=== PATIENT | female | born 1980 | race Caucasian/White ===

== ENCOUNTER 2020-01-03 13:49 | Outpatient (REF) | payer MEDICAID, SELFPAY ==
[2020-01-07 14:17] LABS: SARS-CoV-2 RNA Undetected (Undetected); SARS-CoV-2 Specimen Source Nasal
== END 2020-01-03 14:09 ==
LOC: NCHCN 13:49
PROVIDERS: Visit Provider Family Medicine
DX: Z20.828 Contact with and (suspected) exposure to other viral communicable diseases (principal)
CPT/HCPCS: U0003

== ENCOUNTER 2021-09-24 11:00 | Outpatient (REF) | payer MEDICAID, SELFPAY ==
[2021-09-25 11:02] LABS: COVID-19 RT-PCR UVMMC Result Negative (Negative)
== END 2021-09-24 11:01 | disposition home or self-care (01) ==
LOC: NCHCN 11:00
PROVIDERS: Visit Provider Registered Nurse
DX: Z20.822 Contact with and (suspected) exposure to COVID-19 (principal); J06.9 Acute upper respiratory infection, unspecified
CPT/HCPCS: U0003

== ENCOUNTER 2024-10-03 16:27 | Outpatient (REF) | payer MEDICAID, SELFPAY ==
[2024-10-03 21:41] LABS: HCT 44.9 % (36.0-46.0); HGB 14.7 g/dL (11.2-15.7); MCH 29.3 pg (27.0-33.0); MCHC 32.7 % (32.0-36.0); MCV 89 fL (80-95); MPV 10.4 fL (8.0-11.0); Platelet Count 269 10^3/uL (130-400); RBC 5.02 10^6/uL (3.93-5.22); RDW 13.2 % (11.7-14.6); RDW-SD 43.8 fL; WBC 7.67 10^3/uL (4.4-10.8)
[2024-10-03 21:55] LABS: ALT 26 U/L (14-59); AST 27 U/L (15-37); Albumin 3.8 g/dL (3.4-5.0); Alkaline Phosphatase 66 U/L (46-116); Anion Gap 8.2 mmol/L (3-11); BUN 10 mg/dL (7-18); Bilirubin, Total 0.5 mg/dL (0.2-1.0); CO2 25.8 mmol/L (21.0-32.0); Calcium 9.2 mg/dL (8.5-10.1); Calculated LDL 118 mg/dL (<100); Chloride 101 mmol/L (98-107); Cholesterol 177 mg/dL (<200); Estimated GFR 108.62 (mL/min/1.73m2); Glucose 79 mg/dL (74-106); HDL Cholesterol 47 mg/dL (>or=50); Potassium 3.7 mmol/L (3.5-5.1); Sodium 135 mmol/L (136-145); Total Protein 7.3 g/dL (6.4-8.2); Triglyceride 64 mg/dL (<150)
[2024-10-03 22:23] LABS: Hemoglobin A1C 5.6 % (<5.7)
== END 2024-10-03 16:28 | disposition home or self-care (01) ==
LOC: NCHCN 16:27
PROVIDERS: Visit Provider Family Medicine
DX: F10.90 Alcohol use, unspecified, uncomplicated (principal); D75.1 Secondary polycythemia; Z00.00 Encounter for general adult medical examination without abnormal findings; Z13.220 Encounter for screening for lipoid disorders; Z12.31 Encounter for screening mammogram for malignant neoplasm of breast
CPT/HCPCS: 80053; 80061; 85027; 83036

== ENCOUNTER 2024-11-22 09:38 | Day surgery (SDC) | payer MEDICAID, SELFPAY ==
--- NOTE | 2024-11-21 19:11 | PDOC.DSDIS_ITS ---
Date of service: 11/22/24 Discharge Plan Disposition Patient Disposition: Home Condition: Good Discharge Details Reason For Visit: EGD and colonoscopy Attending Provider: Vladimir Huff Primary Care Provider: Marycarmen Rivas Home Meds and New Rx's Prescriptions: Continued albuterol sulfate 2.5 mg /3 mL (0.083 %) solution for nebulization 2.5 mg inhalation Q4H PRN meloxicam 15 mg tablet 15 mg PO DAILY lidocaine 5 % adhesive patch,medicated 1 patch topical DAILY Rx Instructions: leave on most painful area for up to 12 hrs hydroxyzine HCl 25 mg tablet 25 mg PO TID PRN Arnuity Ellipta 100 mcg/actuation blister with device 1 inh inhalation DAILY Combivent Respimat 20-100 mcg/actuation mist 1 puff inhalation Q6H Discontinued bisacodyl [Dulcolax (bisacodyl)] 5 mg tablet,delayed release (DR/EC) 5 mg PO ONCE Qty: 4 0RF Rx Instructions: Take per colonoscopy instructions provided by ordering providers office polyethylene glycol 3350 17 gram/dose powder 17 g PO ONCE Qty: 238 0RF Rx Instructions: Take per colonoscopy instructions provided by ordering providers office Discharge Instructions Instructions: Colon polyps, Diverticulosis Additional Instructions: Kami, it was nice meeting you today, and hope you feel well after the procedure. Things went smoothly. Your prep was excellent, and I could see things fine. I did find, and removed some polyps today. All of these are quite small. None of them. I will worrisome. However, to be safe, I will send these off to the pathologist for them to review. Once I know the nature of the polyps, I will be in touch with recommendations for your next colonoscopy. Incidentally, you also have some subtle signs of diverticulosis. Diverticula are weak spots in the muscular layer of the colon wall. These can get infected and inflamed and cause quite a bit of discomfort. Hopefully, years never bother you. I will attach some basic information here about colon rectal polyps, as well as diverticu losis. If you need anything, or have any questions at all, please do not hesitate to call at any time. Otherwise we will let you know once the polyp report is available. 1. If tolerated, consume a soft, low fiber diet for 1-2 days. 2[address] Do not drive, drink alcohol, operate machinery, make critical decisions, or do activities that require coordination or balance for 24 hours. 3. Because air was put into your colon during the procedure, expelling air from your rectum (passing gas or farting) is normal. 4. You may not have a bowel movement for 1-3 days because of the colonoscopy prep. This is normal. 5. Go directly to the emergency room if you notice any of the following: Develop chills (warm to touch), or if you have a thermometer and your temperature is above 101 Difficulty breathing or difficultly swallowing Persistent vomiting Severe abdominal pain, other than gas cramps Severe chest pain Black, tarry stools Any bleeding ? exceeding one tablespoon 6. Call your physician if the site where your intravenous was started becomes red, swollen, painful, and warm to touch. 7. Your physician has reviewed your pre-procedure medications. Please continue to take those medications as previously ordered. You will be given specific information/education regarding any changes to your medications before leaving. Stand Alone Forms: Anesthesia Discharge InstArcenio Mendoza (DSU) Activity:: Activity as Tolerated Diet:: As Tolerated Discharge Orders Discharge Orders: Discharge Order (Routine); Ordered 11/21/24 Ordered By: Vladimir Huff DS: Diagnosis Discharge Diagnosis (1) Encounter for screening colonoscopy: Status: Acute Asessment and Plan: Follow-up on polypectomy results
--- NOTE | 2024-11-21 19:12 | W.COLOREPORT ---
Date of service: 11/22/24 Time of Service: 12:31 Colonoscopy Report Date of procedure: 11/22/24 Pre-op diagnosis general: screening colonoscopy Post-op diagnosis procedure note: other (Colorectal polyps, diverticulosis) Procedure: colonoscopy with polypectomy Surgeon: Vladimir Huff Anesthesia Type: General:No Airway Estimated blood loss (mL): 5 Pathology: other (0.25 cm flat rectal polyps x 2, 0.25 cm flat polyp at 20 cm) Complications: None Disposition: same day Indications: Kami is a 44 year old woman who needs a screening colonoscopy Prep: Miralax/Dulcolax Procedure Start Time: 12:00 Procedure End Time: 12:19 Retraction Time: 4 Findings: Colorectal polyps, diverticulosis Procedure Description: After the induction of anesthesia, and with the patient in left lateral decubitus position, I began by performing an external anorectal exam.? Perineum and skin were normal, as was the anal verge.? There was no evidence of external hemorrhoids.? Next, I performed a digital rectal exam.? I did not appreciate any abnormal findings.? Next, I advanced a colonoscope into the rectal vault.? I performed retroflexion.? There were few diminutive polyps in the rectum. Narrowband imaging was used to assist with the analysis severe. These all appeared consistent with hyperplastic polyps. 2 of these were a little bit suspicious for adenomas, and I performed cold forceps polypectomy of these. Each was less than 0.25 cm. These were sent as a single specimen. There was minimal bleeding from the polypectomy sites..? Using insufflation, I then advanced the colonoscope beyond the rectal folds and into the sigmoid colon before advancing towards the cecum.? The scope was noted to be in the cecum by identification of the ileocecal valve and appendiceal orifice.? I then began withdrawing the colonoscope using repeated irrigation as necessary for full evaluation of the colonic mucosa. In the sigmoid segment, there was some thickening of the intracolonic mucosa, with some suggestion of diverticulosis. Around 20 cm from the anal verge, just at the upper portion of the rectal vault were another polyp. This had more adenomatous features. This was removed with cold forceps. There was no significant issues here. Once the scope was withdrawn to the level of the rectum, great care was taken to examine portions of the rectal folds.? Finally, the scope was withdrawn and the patient was brought to the same-day surgery recovery unit as the anesthetic wore off. ?The findings and instructions were shared with the patient prior to discharge. Jber Bowel Prep Jber Bowel Prep Right Colon: 3 Left Colon: 3 Transverse Colon: 3 Total Score: 9
[2024-11-22 10:25] VITALS: BP 130/91; PULSE 63; RESP 16; TEMP 36.4; O2SAT 97
[2024-11-22] MEDS: Lactated Ringers 1,000 ML 80 ML IV (10:47)
--- NOTE | 2024-11-22 11:51 | ANES.PREOP_ITS ---
General Info Date of Service Date Performed: 11/22/24 Height: 5 ft 4 in Weight: 74.1 kg Body Mass Index (BMI): 28.0 Surgical Procedure: Operation Date: 11/22/24 11:35 Proposed Procedure Side Surgeon p Colonoscopy Vladimir Huff MD Actual Procedure Side Surgeon p Colonoscopy Not Applicable Vladimir Huff MD Pre-Op Diagnosis Post-Op Diagnosis screening colonoscopy Meds Allergies and Home Medications Allergies Allergy/AdvReac Type Severity Reaction Status Date / Time No Known Allergies Allergy Verified 11/22/24 10:29 Home Medication ?Medication ?Instructions ?Recorded albuterol sulfate 2.5 mg/3 mL 2.5 mg inhalation Q4H AL N 10/29/24 (0.083 %) solution for nebulization fluticasone furoate 100 1 inh inhalation DAILY 10/29 mcg/actuation blister powder for inhalation (Arnuity Ellipta) hydroxyzine HCl 25 mg tablet 25 mg PO TID PRN 10/29/24 ipratropium 20 mcg-albuterol 100 1 puff inhalation Q6H 10/29/24 mcg/actuation mist for inhalation (Combivent Respimat) lidocaine 5 % topical patch 1 patch topical DAILY 10/18 05/14 meloxicam 15 mg tablet 15 mg PO DAILY 10/29/24 Current Visit Medications: Current Medications Generic Name Dose Route Start Last Admin Trade Name Freq PRN Reason Stop Dose Admin Ringer's Solution 1,000 mls @ 80 mls/hr 11/22/24 06:00 11/22/24 10:47 IV 11/22/24 23:59 80 mls/hr INFUSION GINA Administration IV Miscellaneous Supplies 1 each 11/22/24 06:00 Iv Access IV 11/22/24 23:59 DIRECTED GINA Sodium Chloride 0 ml 11/22/24 06:00 Normal Saline Flush 10 Ml Syr IV 11/22/24 23:59 PRN PRN Sodium Chloride 0 ml 11/22/24 06:00 Normal Saline 10 Ml Vial IJ 11/22/24 23:59 DIRECTED PRN Sterile Water 0 ml 11/22/24 06:00 Water,Injection,Sterile 10 Ml Vial IJ 11/22/24 23:59 DIRECTED PRN PFSH Active Problems Active Problems: Problem Status Onset Code Encounter for screening colonoscopy Acute Z12.11 Medical History Medical History Arterial bruit Sciatica Lower back pain 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 KARAN (generalized anxiety disorder) COPD (chronic obstructive pulmonary disease) Recurrent major depression Overweight Herpes zoster Surgical History Surgical History History of hysterectomy Tobacco Smoking/Tobacco Use Status: Current every day Alcohol Alcohol Intake: former Substance Use Substance use: Daily Substance use type: marijuana Vital Signs and Lab Results Vital Signs Most Recent Vital Signs in EMR: Most Recent Vital Signs Temp Pulse Resp BP Pulse Ox 36.4 C L 63 16 130/91 H 97 11/22/24 10:25 11/22/24 10:25 11/22/24 10:25 11/22/24 10:25 11/22/24 10:25 Anesthesia Assessment and Plan Anesthesia History Personal History: No History of Anesthesia Complications Family History: No Family History of Anesthesia Complications Exercise Tolerance Exercise Tolerance: Metabolic Equivalents>4 Pertinent Negatives Pertinent Negatives: No Symptoms of GERD and No History of CVA/TIA Cardiac & Pulmonary Exam Cardiac Exam: Normal S1/S2 Heart Sounds Pulmonary Exam: Wheezing Present, Rhonchi Present and Active Dry Cough Implantable Cardiac Device Does patient have a Pacemaker or an ICD?: No Airway Exam Known Difficult Airway: No Mallampati Class: 3 Mouth Opening: Normal (> 3cm) Thyromental Distance: Greater than 3 cm Neck Range of Motion: Full ROM Neck Circumference: Normal Teeth Condition: Edentulous ASA Classification ASA Score: ASA 3 Emergency Case?: No NPO Status NPO Status: NPO Clears >2 hours, Solids >8 hours Status Status: History of Hysterectomy Anesthesia Plan Resuscitation Status: Full Code Anesthesia Technique: General Anesthesia Airway Planned: Natural Airway Monitors Used: Standard Monitors
[2024-11-22 11:53] VITALS: BMI 28.0
--- NOTE | 2024-11-22 12:05 | BOWEL_PTH ---
PATIENT: Kami Castillo LOC: [facility] U#:[id number] AGE/SX: 44/F ROOM: RE11/22/[address]: Vladimir Huff MD : [id number] BED: DIS: 11/22/2024 SPEC #: [id number] RECD: 11/22/24 12:55 STATUS: ARTEM REShantal #: [id number] FAINA: 11/22/24 12:[address]: Vladimir Huff DEPT: Surgical Specimen RECD BY: Barb Sawyer ENTERED: 11/22/24 12:56 SP TYPE: Bowel OTHR DR: Marycarmen Rivas Tissues: 1 - BIOPSY BOWEL 2 - BIOPSY BOWEL Procedures: GROSS AND MICRO LEVEL 4 Comments: [id number]
[2024-11-22 12:23] VITALS: BP 136/95; PULSE 92; RESP 20; TEMP 36.5; O2SAT 94
[2024-11-22 12:44] VITALS: BP 136/90; PULSE 75; RESP 18; TEMP 36.4; O2SAT 98
--- NOTE | 2024-11-22 14:19 | W.ANESPOSTOP ---
Postoperative Evaluation Date, Time and Location Date Performed: 11/22/24 Time Performed: 14:19 Patient Location: Day Surgery Unit Vital Signs Most Recent Imported Vital Signs: Most Recent Vital Signs Temp Pulse Resp BP Pulse Ox 36.4 C L 75 18 136/90 98 11/22/24 12:44 11/22/24 12:44 11/22/24 12:44 11/22/24 12:44 11/22/24 12:44 Pain Score Most Recent Pain Score: Most Recent Pain Score Pain Level 0 11/22/24 12:44 Assessment Mental Status: Awake (Alert & Oriented to Patient Baseline) Airway and Respiratory Function: Patent airway with normal (patient baseline) respiratory exam Cardiovascular Function: Hemodynamically Stable Hydration Status: Adequately Hydrated Nausea & Vomiting: No Nausea or Vomiting Pain: Pt. Denies Any Pain Peripheral Nerve Block: Patient did not receive a nerve block
== END 2024-11-22 12:58 | disposition home or self-care (01) ==
LOC: SUR 09:39
PROVIDERS: PCP Family Medicine; Visit Provider Surgery
PROC: 0DJD8ZZ Inspection of Lower Intestinal Tract, Via Natural or Artificial Opening Endoscopic (ICD-10-PCS; CPT 45378; principal; 2024-11-22 11:30)
DX: Z12.11 Encounter for screening for malignant neoplasm of colon (principal); K63.5 Polyp of colon; K62.1 Rectal polyp; K57.30 Diverticulosis of large intestine without perforation or abscess without bleeding
CPT/HCPCS: 45380; 88305; J2250; J2704